=== PATIENT | male | born 1990 | race African-American/Black ===

== ENCOUNTER 2017-05-07 22:15 | Inpatient (IN) | payer SELFPAY ==
[~2017-05-07] VITALS: Ht 180.3 cm; Wt 70.9 kg
[2017-05-07 22:16] VITALS: BP 141/74; PULSE 145; RESP 22; TEMP 103.2; O2SAT 98
[2017-05-07] MEDS ORDERED: SODIUM CHLOR 0.9% 1000 ML INJ 1,000 ML IV ONE ×2 (22:36)
[2017-05-07] MEDS ORDERED: SODIUM CHLOR 0.9% 1000 ML INJ 400 ML IV ONE (22:36)
[2017-05-07] MEDS ORDERED: ACETAMINOPHEN 325 MG TAB PO ONE (22:45)
--- NOTE | 2017-05-07 22:48 | PD ---
HPI . Fever and chills Chief Complaint: Cold / Flu Symptoms Time Seen by Provider: 22:33 Travel History International Travel<30 days: No Contact w/Intl Traveler<30days: No Traveled to known affect area: No History of Present Illness HPI This patient presents with a 5 day history of fevers and chills. He also has myalgias. He states that he had a brief period of upper respiratory symptoms and a cough on the day that the symptoms started. The symptoms have all completely resolved. He denies any urinary tract symptoms such as dysuria, frequency or urgency. He has had just a couple of episodes of emesis and diarrhea during the last 5 days. Nothing significant. He denies abdominal pain. He reports that NyQuil and DayQuil do help some. He states that his symptoms are worse at night. He reports exposure to several people who are sick with similar illnesses. He rates his body aches at 7/10. [facility] Social History Alcohol Use: Yes Tobacco Use: Yes Allergies-Medications (Allergen,Severity, Reaction): Coded Allergies: No Known Allergies (Verified Allergy, Unknown, 05/07/17) Reported Meds & Prescriptions Reported Meds & Active Scripts Active No Active Prescriptions or Reported Medications Review of Systems Except as stated in HPI: all other systems reviewed are Neg General / Constitutional: Positive: Fever, Chills HENT: No: Headaches, Sore Throat, Rhinorrhea, Congestion Respiratory: No: Cough, Shortness of Breath Gastrointestinal: Positive: Nausea, Diarrhea (minimal emesis and diarrhea) Genitourinary: No: Urgency, Frequency, Dysuria, Decreased Urinary Output Musculoskeletal: Positive: Myalgias Physical Exam Narrative GENERAL: He is awake and alert and does not look like he is in distress. SKIN: warm/dry. Good color and turgor. HEAD: Normocephalic. EYES: Pupils equal and round. No scleral icterus. No injection or drainage. ENT: No nasal bleeding or discharge. Mucous membranes pink and moist. NECK: Trachea midline. Full range of motion without pain.. Supple. CARDIOVASCULAR: Tachycardic at about 140. RESPIRATORY: No accessory muscle use. Clear to auscultation. Breath sounds equal bilaterally. GASTROINTESTINAL: Abdomen soft. Nontender. Bowel sounds present. Nondistended. MUSCULOSKELETAL: No obvious deformities. NEUROLOGICAL: Awake and alert. No obvious cranial nerve deficits. Motor grossly within normal limits. Normal speech. PSYCHIATRIC: Appropriate mood and affect; insight and judgment normal. Data Data Last Documented VS Vital Signs Date Time Temp Pulse Resp B/P (MAP) Pulse Ox O2 Delivery O2 Flow Rate FiO2 05/07/17 23:38 101.2 99 20 112/51 (71) 100 Room Air Orders Orders Sepsis Workup Initiated (05/07/17 ) Complete Blood Count With Diff (05/07/17 22:36) Comprehensive Metabolic Panel (05/07/17 22:36) Lactic Acid Sepsis Protocol (05/07/17 22:36) Urinalysis - C+S If Indicated (05/07/17 22:36) Influenzae A/B Antigen (05/07/17 22:36) Blood Culture (05/07/17 22:36) Chest, Single Ap (05/07/17 22:36) Blood Glucose (05/07/17 22:36) Ecg Monitoring (05/07/17 22:36) Iv Access Insert/Monitor (05/07/17 22:36) Oximetry (05/07/17 22:36) Oxygen Administration (05/07/17 22:36) Acetaminophen (Tylenol) (05/07/17 22:45) Sodium Chlor 0.9% 1000 Ml Inj (Ns 1000 M (05/07/17 22:36) Sodium Chlor 0.9% 1000 Ml Inj (Ns 1000 M (05/07/17 22:36) Sodium Chlor 0.9% 1000 Ml Inj (Ns 1000 M (05/07/17 22:36) Ceftriaxone Inj (Rocephin Inj) (05/07/17 23:07) Azithromycin Inj (Zithromax Inj) (05/07/17 23:07) Urine Culture (05/07/17 23:10) Admit Order (Ed Use Only) (05/08/17 ) Labs Laboratory Tests Test 05/07/17 22:54 05/07/17 23:10 White Blood Count 11.6 TH/MM3 Red Blood Count 4.29 MIL/MM3 Hemoglobin 9.8 GM/DL Hematocrit 29.6 % Mean Corpuscular Volume 69.1 FL Mean Corpuscular Hemoglobin 22.9 PG Mean Corpuscular Hemoglobin Concent 33.1 % Red Cell Distribution Width 15.0 % Platelet Count 339 TH/MM3 Mean Platelet Volume 8.8 FL Neutrophils (%) (Auto) 65.9 % Lymphocytes (%) (Auto) 23.8 % Monocytes (%) (Auto) 9.9 % Eosinophils (%) (Auto) 0.2 % Basophils (%) (Auto) 0.2 % Neutrophils # (Auto) 7.6 TH/MM3 Lymphocytes # (Auto) 2.8 TH/MM3 Monocytes # (Auto) 1.1 TH/MM3 Eosinophils # (Auto) 0.0 TH/MM3 Basophils # (Auto) 0.0 TH/MM3 CBC Comment AUTO DIFF Differential Comment AUTO DIFF CONFIRMED Blood Urea Nitrogen 28 MG/DL Creatinine 1.40 MG/DL Random Glucose 99 MG/DL Total Protein 7.9 GM/DL Albumin 2.2 GM/DL Calcium Level 8.1 MG/DL Alkaline Phosphatase 302 U/L Aspartate Amino Transf (AST/SGOT) 89 U/L Alanine Aminotransferase (ALT/SGPT) 91 U/L Total Bilirubin 1.8 MG/DL Sodium Level 132 MEQ/L Potassium Level 4.2 MEQ/L Chloride Level 100 MEQ/L Carbon Dioxide Level 22.3 MEQ/L Anion Gap 10 MEQ/L Estimat Glomerular Filtration Rate 74 ML/MIN Lactic Acid Level 2.1 mmol/L Urine Color YELLOW Urine Turbidity HAZY Urine pH 5.5 Urine Specific [place] 1.011 Urine Protein 100 mg/dL Urine Glucose (UA) NEG mg/dL Urine Ketones NEG mg/dL Urine Occult Blood MOD Urine Nitrite NEG Urine Bilirubin NEG Urine Urobilinogen 4.0 MG/DL Urine Leukocyte Esterase TRACE Urine RBC 49 /hpf Urine WBC 18 /hpf Urine Squamous Epithelial Cells <1 /hpf Urine Bacteria RARE /hpf Urine Granular Casts 10 /lpf Urine Mucus FEW /lpf Urine Yeast (Budding) RARE Microscopic Urinalysis Comment CATH-CULTURE IND [facility] Medical Decision Making Medical Screen Exam Complete: Yes Emergency Medical Condition: Yes Differential Diagnosis Differential diagnosis of fever includes but is not limited to viral illness, strep throat, otitis media, pneumonia, sepsis, UTI Narrative Course This patient presents with a fever of 103+ as well as tachycardia. Septic workup has been initiated. He is young and healthy. I have ordered a 3 L fluid bolus which is 30 cc/kg. He will also be given Tylenol. Flu screen is negative. Last Impressions Chest X-Ray 05/07/17 7926 Signed Impressions: Service Date/Time: Sunday, May 07, 2017 22:54 - CONCLUSION: 1. Ill-defined opacity in the mid to lower lung zone concerning for developing airspace disease. Wander Browne MD Rocephin and Zithromax were subsequently ordered. UA>>trace LE, 49 RBCs, 18 WBCs, rare bact. He also has some yeast. CBC & BMP Diagram 05/07/17 22:54 Total Protein 7.9, Albumin 2.2 L, Calcium Level 8.1 L, Alkaline Phosphatase 302 H, Aspartate Amino Transf (AST/SGOT) 89 H, Alanine Aminotransferase (ALT/SGPT) 91 H, Total Bilirubin 1.8 H LA 2.1 HR is down to 95 following fever control and IVF. He is agreeable to admission at least overnight. Critical Care Narrative Aggregate critical care time was 30 minutes. Time to perform other separately billable procedures was not included in the critical care time. My time did not include minutes spent treating any other patients simultaneously or on activities that did not directly contribute to the patient's treatment. The services I provided to this patient were to treat and/or prevent clinically significant deterioration due to severe sepsis I provided critical care services requiring my management, as noted below: Chart data review, documentation time, medication orders and management, vital sign assessments/reviewing monitor data, ordering and reviewing lab tests, ordering and interpreting/reviewing x-rays and diagnostic studies, care of the patient and discussion of the patient with the admitting physicians Sepsis Criteria SIRS Criteria (2 or more): Temp > 100.9 or < 96.8, Heart rate over 90 Sepsis Criteria (SIRS+source): Infect source susp/known Severe Sepsis (+one): Lactate >2 Criteria Outcome: Meets SIRS criteria, Meets sepsis criteria Physician Communication Physician Communication Dr. Paredes Diagnosis Primary Impression: Severe sepsis Additional Impressions: Pneumonia Qualified Codes: J18.1 - Lobar pneumonia, unspecified organism Urinary tract infection Qualified Codes: N39.0 - Urinary tract infection, site not specified Admitting Information Admitting Physician Requests: Observation Scripts No Active Prescriptions or Reported Meds Condition: Stable Tere Rajan MD May 07, 2017 22:48
--- NOTE | 2017-05-07 23:03 | RADRPT ---
EXAM DATE/TIME: 05/07/2017 22:54 [place] COMPARISON: No previous studies available for comparison. INDICATIONS : Fever for 1 week. MEDICAL HISTORY : None. SURGICAL HISTORY : None. ENCOUNTER: Initial ACUITY: 1 week PAIN SCORE: 0/10 LOCATION: Bilateral chest FINDINGS: Ill-defined opacity in the left mid to lower lung zone. Cardiome subchondrally within normal limits. Bony thorax is intact. CONCLUSION: 1. Ill-defined opacity in the mid to lower lung zone concerning for developing airspace disease. Wander Browne MD on May 07, 2017 at 22:58 Board Certified Radiologist. This report was verified electronically.
[2017-05-07] MEDS ORDERED: AZITHROMYCIN INJ 500 MG in SODIUM CHLOR 0.9% 250 ML INJ 250 ML IV STA (23:07)
[2017-05-07] MEDS ORDERED: cefTRIAXone INJ 2,000 MG in SODIUM CHLORIDE 0.9% INJ 100 ML IV STA (23:07)
[2017-05-07 23:22] LABS: AUTOMATED NEUTROPHIL # 7.6 TH/MM3 (1.8-7.7); BASOPHIL % 0.2 % (0.0-2.0); EOSINOPHIL % 0.2 % (0.0-4.0); HEMATOCRIT 29.6 % (39.0-51.0); HEMOGLOBIN 9.8 GM/DL (13.0-17.0); LYMPH % 23.8 % (9.0-44.0); LYMPHOCYTE # 2.8 TH/MM3 (1.0-4.8); MEAN CELL VOLUME 69.1 FL (80.0-100.0); MEAN CORPUSCULAR HEMOGLOBIN 22.9 PG (27.0-34.0); MEAN CORPUSCULAR HGB CONC 33.1 % (32.0-36.0); MEAN PLATELET VOLUME 8.8 FL (7.0-11.0); MONO % 9.9 % (0.0-8.0); MONOCYTE # 1.1 TH/MM3 (0-0.9); NEUT % 65.9 % (16.0-70.0); PLATELET COUNT 339 TH/MM3 (150-450); RED BLOOD COUNT 4.29 MIL/MM3 (4.50-5.90); WHITE BLOOD COUNT 11.6 TH/MM3 (4.0-11.0)
[2017-05-07 23:29] LABS: BACTERIA, URINE RARE /hpf; BILIRUBIN, URINE NEG (NEG); BLOOD, URINE MOD (NEG); GLUCOSE,URINE NEG (NEG); KETONE, URINE NEG (NEG); MUCUS URINE FEW /lpf (OCC); NITRITE,URINE NEG (NEG); PH, URINE 5.5 (5.0-8.5); SQUAMOUS EPITHELIAL CELL URINE <1 /hpf (0-5); URINE COLOR YELLOW (YELLW/STRAW); URINE LEUKOCYTE ESTERASE TRACE (NEG)
[2017-05-07 23:38] VITALS: BP 112/51; PULSE 99; RESP 20; TEMP 101.2; O2SAT 100
[2017-05-07 23:41] LABS: ALBUMIN 2.2 GM/DL (3.4-5.0); ALT (GPT) 91 U/L (12-78); AST (GOT) 89 U/L (15-37); BICARBONATE 22.3 MEQ/L (21.0-32.0); BLOOD UREA NITROGEN 28 MG/DL (7-18); CALCIUM 8.1 MG/DL (8.5-10.1); CHLORIDE 100 MEQ/L (98-107); GLOMERULAR FILTRATION RATE 74 ML/MIN (>89); GLUCOSE,RANDOM 99 MG/DL (74-106); SODIUM (NA) 132 MEQ/L (136-145)
[2017-05-07 23:43] LABS: ALKALINE PHOSPHATASE 302 U/L (45-117); TOTAL BILIRUBIN ADULT 1.8 MG/DL (0.2-1.0); TOTAL PROTEIN 7.9 GM/DL (6.4-8.2)
[2017-05-07 23:44] LABS: LACTIC ACID SEPSIS PROTOCOL 2.1 mmol/L (0.4-2.0)
[2017-05-08] VITALS: BP 113/64; PULSE 78; RESP 18; TEMP 98.7; O2SAT 98
[2017-05-08] MEDS ORDERED: ONDANSETRON HCL 4 MG/2 ML VIAL IV PUSH PRN (00:30)
[2017-05-08] MEDS ORDERED: ACETAMINOPHEN 325 MG TAB PO PRN (00:30)
[2017-05-08] MEDS ORDERED: RESP: ALBUTEROL 2.5 MG/IPRATROPIUM 0.5 MG NEB (PRN) INH (00:30)
[2017-05-08] MEDS ORDERED: SODIUM CHLORIDE 0.9% FLUSH 10 ML FLUSH IV FLUSH PRN (00:30)
[2017-05-08 01:03] VITALS: BP 113/56; PULSE 92; RESP 20; TEMP 99.8; O2SAT 99
--- NOTE | 2017-05-08 01:29 | HHI.HP ---
[facility] [place] [facility] Primary Care Physician No Primary Care Physician Admission Diagnosis sepsis, pneumonia, UTI Diagnoses: Travel History International Travel<30 Days: No Contact w/Intl Traveler <30 Da: No Traveled to Known Affected Are: No History of Present Illness 26-year-old male with no significant past medical history presents to the emergency department for evaluation of flulike symptoms. The patient reports subjective fever with shivers and a cough productive of green sputum for the past 6-7 days. He denies any shortness of breath or chest pain. He was febrile on arrival to the emergency department if one of 3.2. Tachycardic to 145. Respiratory rate 22. BP 141/74. Oxygen saturation 98% on room air. He has a mild leukocytosis of 11.6. Chest x-ray concerning for developing pneumonia. UA consistent with urinary tract infection. Review of Systems Positive fever/chills Denies blurry vision, otorrhea, rhinorrhea Denies sore throat, positive cough No chest pain, palpitations, shortness of breath No abdominal pain Denies constipation/diarrhea/nausea/vomiting Denies muscle pain/weakness No rashes Past Family Social History Past Medical History None Past Surgical History None Reported Medications None Allergies: Coded Allergies: No Known Allergies (Verified Allergy, Unknown, 05/07/17) Family History Mother with hypertension Social History Smokes approximately 1 pack every 1-1/2 days. Occasional alcohol. Daily marijuana use. Denies other illicit drugs. Physical Exam Vital Signs Vital Signs Date Time Temp Pulse Resp B/P (MAP) Pulse Ox O2 Delivery O2 Flow Rate FiO2 05/08/17 01:03 99.8 92 20 113/56 (75) 99 Room Air 05/08/17 00:38 98 Room Air 05/07/17 23:38 101.2 99 20 112/51 (71) 100 Room Air 05/07/17 23:04 100 Room Air 05/07/17 23:01 148 100 Room Air 05/07/17 22:16 103.2 145 22 141/74 (96) 98 Room Air Physical Exam GENERAL: male lying in bed SKIN: No rashes, ecchymoses or lesions. Cool and dry. HEAD: Atraumatic. Normocephalic. No temporal or scalp tenderness. EYES: Pupils equal round and reactive. Extraocular motions intact. No scleral icterus. No injection or drainage. ENT: Nose without bleeding, purulent drainage or septal hematoma. Throat without erythema, tonsillar hypertrophy or exudate. Uvula midline. Airway patent. NECK: Trachea midline. No JVD or lymphadenopathy. Supple, nontender, no meningeal signs. CARDIOVASCULAR: Regular rate and rhythm without murmurs, gallops, or rubs. RESPIRATORY: Clear to auscultation. Breath sounds equal bilaterally. No wheezes , rales, or rhonchi. GASTROINTESTINAL: Abdomen soft, non-tender, nondistended. No hepato-splenomegaly , or palpable masses. No guarding. MUSCULOSKELETAL: Extremities without clubbing, cyanosis, or edema. No joint tenderness, effusion, or edema noted. No calf tenderness. NEUROLOGICAL: Awake and alert. Cranial nerves II through XII intact. Motor and sensory grossly within normal limits. Normal speech. Laboratory Laboratory Tests Test 05/07/17 22:54 05/07/17 23:10 05/08/17 00:49 White Blood Count 11.6 Red Blood Count 4.29 Hemoglobin 9.8 Hematocrit 29.6 Mean Corpuscular Volume 69.1 Mean Corpuscular Hemoglobin 22.9 Mean Corpuscular Hemoglobin Concent 33.1 Red Cell Distribution Width 15.0 Platelet Count 339 Mean Platelet Volume 8.8 Neutrophils (%) (Auto) 65.9 Lymphocytes (%) (Auto) 23.8 Monocytes (%) (Auto) 9.9 Eosinophils (%) (Auto) 0.2 Basophils (%) (Auto) 0.2 Neutrophils # (Auto) 7.6 Lymphocytes # (Auto) 2.8 Monocytes # (Auto) 1.1 Eosinophils # (Auto) 0.0 Basophils # (Auto) 0.0 CBC Comment AUTO DIFF Differential Comment AUTO DIFF CONFIRMED Blood Urea Nitrogen 28 Creatinine 1.40 Random Glucose 99 Total Protein 7.9 Albumin 2.2 Calcium Level 8.1 Alkaline Phosphatase 302 Aspartate Amino Transf (AST/SGOT) 89 Alanine Aminotransferase (ALT/SGPT) 91 Total Bilirubin 1.8 Sodium Level 132 Potassium Level 4.2 Chloride Level 100 Carbon Dioxide Level 22.3 Anion Gap 10 Estimat Glomerular Filtration Rate 74 Lactic Acid Level 2.1 Urine Color YELLOW Urine Turbidity HAZY Urine pH 5.5 Urine Specific [place] 1.011 Urine Protein 100 Urine Glucose (UA) NEG Urine Ketones NEG Urine Occult Blood MOD Urine Nitrite NEG Urine Bilirubin NEG Urine Urobilinogen 4.0 Urine Leukocyte Esterase TRACE Urine RBC 49 Urine WBC 18 Urine Squamous Epithelial Cells <1 Urine Bacteria RARE Urine Granular Casts 10 Urine Mucus FEW Urine Yeast (Budding) RARE Microscopic Urinalysis Comment CATH-CULTURE IND Date/Time Source Procedure Growth Status 05/07/17 22:55 Blood Peripheral Aerobic Blood Culture Pending Received 05/07/17 22:55 Blood Peripheral Anaerobic Blood Culture Pending Received 05/07/17 22:54 Nasal Washing Influenza Types A,B Antigen (DARCI) - Final NEGATIVE FOR FLU A AND B ANTIGEN.... Complete 05/07/17 23:10 Urine Catheterized Urine Urine Culture Pending Received Result Diagram: 05/07/17 2254 05/07/17 2254 Caprini VTE Risk Assessment Caprini VTE Risk Assessment: No/Low Risk (score <= 1) Caprini Risk Assessment Model Point Value = 1 Point Value = 2 Point Value = 3 Point Value = 5 Age 41-60 Minor surgery BMI > 25 kg/m2 Swollen legs Varicose veins or History of unexplained or recurrent spontaneous Oral contraceptives or hormone replacement Sepsis (< 1 month) Serious lung disease, including pneumonia (< 1 month) Abnormal pulmonary function Acute myocardial infarction Congestive heart failure (< 1 month) History of inflammatory bowel disease Medical patient at bed rest Age 61-74 Arthroscopic surgery Major open surgery (> 45 min) Laparoscopic surgery (> 45 min) Malignancy Confined to bed (> 72 hours) Immobilizing plaster cast Central venous access Age >= 75 History of VTE Family history of VTE Factor V Leiden Prothrombin [id number] Lupus anticoagulant Anticardiolipin antibodies Elevated serum homocysteine Heparin-induced thrombocytopenia Other congenital or acquired thrombophilia Stroke (< 1 month) Elective arthroplasty Hip, pelvis, or leg fracture Acute spinal cord injury (< 1 month) Prophylaxis Regimen Total Risk Factor Score Risk Level Prophylaxis Regimen 0-1 Low Early ambulation 2 Moderate Order ONE of the following: *Sequential Compression Device (SCD) *Heparin 5000 units SQ BID 3-4 Higher Order ONE of the following medications: *Heparin 5000 units SQ TID *Enoxaparin/Lovenox 40 mg SQ daily (WT < 150 kg, CrCl > 30 mL/min) *Enoxaparin/Lovenox 30 mg SQ daily (WT < 150 kg, CrCl > 10-29 mL/min) *Enoxaparin/Lovenox 30 mg SQ BID (WT < 150 kg, CrCl > 30 mL/min) AND/OR *Sequential Compression Device (SCD) 5 or more Highest Order ONE of the following medications: *Heparin 5000 units SQ TID (Preferred with Epidurals) *Enoxaparin/Lovenox 40 mg SQ daily (WT < 150 kg, CrCl > 30 mL/min) *Enoxaparin/Lovenox 30 mg SQ daily (WT < 150 kg, CrCl > 10-29 mL/min) *Enoxaparin/Lovenox 30 mg SQ BID (WT < 150 kg, CrCl > 30 mL/min) AND *Sequential Compression Device (SCD) Assessment and Plan Assessment and Plan Assessment/plan: 1. Community acquired pneumonia/sepsis Chest x-ray concerning for early pneumonia, images reviewed by me Somers/[place] Patient febrile, with leukocytosis, tachycardia and lactic acid of 2.1 Monitor for signs of sepsis Blood cultures pending 2. Urinary tract infection UA with rare yeast, rare bacteria, trace leukocyte esterase, moderate blood Antibiotics as above Add Diflucan 3. ASIA Cr 1.40, no baseline for comparison IVF hydration Monitor renal function FEN Regular diet NS at 125 cc/hr Physician Certification 2 Midnight Certification Type: Admission for Inpatient Services Order for Inpatient Services The services are ordered in accordance with Medicare regulations or non- Medicare payer requirements, as applicable. In the case of services not specified as inpatient-only, they are appropriately provided as inpatient services in accordance with the 2-midnight benchmark. Estimated LOS (days): 2 2 days is the estimated time the patient will need to remain in the hospital, assuming treatment plan goals are met and no additional complications. Post-Hospital Plan: Home Jodie Paredes MD May 08, 2017 01:29
[2017-05-08] MEDS: RESP: ALBUTEROL 2.5 MG/IPRATROPIUM 0.5 MG NEB (SCH) INH ×2 (02:51→07:43)
[2017-05-08 04:00] VITALS: BP 108/58; PULSE 77; RESP 18; TEMP 98.7; O2SAT 97
[2017-05-08] MEDS: SODIUM CHLOR 0.9% 1000 ML INJ 1,000 ML IV SCH ×2 (04:39→09:11)
[2017-05-08 07:31] VITALS: BP 107/55; PULSE 61; RESP 20; TEMP 97.9; O2SAT 100
[2017-05-08] MEDS ORDERED: FLUCONAZOLE 200 MG TAB PO SCH (09:00)
[2017-05-08] MEDS ORDERED: SODIUM CHLORIDE 0.9% FLUSH 10 ML FLUSH IV FLUSH SCH (09:00)
[2017-05-08 10:58] LABS: HEMATOCRIT 31.6 % (39.0-51.0); HEMOGLOBIN 10.3 GM/DL (13.0-17.0); MEAN CELL VOLUME 69.6 FL (80.0-100.0); MEAN CORPUSCULAR HEMOGLOBIN 22.8 PG (27.0-34.0); MEAN CORPUSCULAR HGB CONC 32.8 % (32.0-36.0); MEAN PLATELET VOLUME 8.6 FL (7.0-11.0); PLATELET COUNT 369 TH/MM3 (150-450); RED BLOOD COUNT 4.54 MIL/MM3 (4.50-5.90); RED CELL DISTRIBUTION WIDTH 15.5 % (11.6-17.2); WHITE BLOOD COUNT 17.4 TH/MM3 (4.0-11.0)
[2017-05-08 11:18] LABS: ALBUMIN 1.8 GM/DL (3.4-5.0); ALT (GPT) 81 U/L (12-78); AST (GOT) 85 U/L (15-37); BICARBONATE 23.9 MEQ/L (21.0-32.0); BLOOD UREA NITROGEN 20 MG/DL (7-18); CALCIUM 7.9 MG/DL (8.5-10.1); CHLORIDE 108 MEQ/L (98-107); CREATININE 1.01 MG/DL (0.60-1.30); GLOMERULAR FILTRATION RATE 108 ML/MIN (>89); GLUCOSE,RANDOM 119 MG/DL (74-106); SODIUM (NA) 142 MEQ/L (136-145)
[2017-05-08 11:22] LABS: ALKALINE PHOSPHATASE 263 U/L (45-117); TOTAL BILIRUBIN ADULT 1.6 MG/DL (0.2-1.0); TOTAL PROTEIN 7.2 GM/DL (6.4-8.2)
[2017-05-08 11:41] VITALS: BP 134/81; PULSE 79; RESP 18; TEMP 99.3; O2SAT 100
[2017-05-08] MEDS ORDERED: LEVA750T9 PO ×2 (12:52→12:57)
--- NOTE | 2017-05-08 12:56 | HHI.DCPOC ---
Discharge Care Plan Diagnosis: (1) Dehydration (2) Elevated liver enzymes (3) Pneumonia Additional Problems You will need to see your primary care provider in 3-5 days in regards to this admission and in regards to your mild elevated liver enzymes. It may be due to a virus but you will need to have this recheck to make sure this resolved or if further work up is needed. Goals to Promote Your Health * To prevent worsening of your condition and complications * To maintain your health at the optimal level Directions to Meet Your Goals Take your medications as prescribed Follow your dietary instruction Follow activity as directed Keep your appointments as scheduled Take your immunizations and boosters as scheduled If your symptoms worsen call your PCP, if no PCP go to Urgent Care Center or Emergency Room Smoking is Dangerous to Your Health. Avoid second hand smoke Call the 24-hour hour crisis hotline for domestic abuse at Saranya Canela MD May 08, 2017 12:56
--- NOTE | 2017-05-08 14:54 | HHI.DS ---
Discharge Summary Admission Date May 08, 2017 at 01:11 Discharge Date: May 08, 2017 Admitting Diagnosis Viral syndrome Elevated liver enzymes Renal insufficiency/dehydration (1) Elevated liver enzymes ICD Code: R74.8 - Abnormal levels of other serum enzymes Diagnosis: Principal (2) Dehydration ICD Code: E86.0 - Dehydration Diagnosis: Principal (3) Renal insufficiency ICD Code: N28.9 - Disorder of kidney and ureter, unspecified Diagnosis: Principal (4) Pneumonia ICD Code: J18.9 - Pneumonia, unspecified organism Diagnosis: Principal Status: Acute Procedures See hospital course. Brief History - From Admission 26-year-old male with no significant past medical history presents to the emergency department for evaluation of flulike symptoms. The patient reports subjective fever with shivers and a cough productive of green sputum for the past 6-7 days. He denies any shortness of breath or chest pain. He was febrile on arrival to the emergency department if one of 3.2. Tachycardic to 145. Respiratory rate 22. BP 141/74. Oxygen saturation 98% on room air. He has a mild leukocytosis of 11.6. Chest x-ray concerning for developing pneumonia. UA consistent with urinary tract infection. CBC/BMP: 05/08/17 1039 05/08/17 1039 Significant Findings Laboratory Tests Test 05/07/17 22:54 05/07/17 23:10 05/08/17 00:49 05/08/17 10:39 White Blood Count 11.6 TH/MM3 (4.0-11.0) 17.4 TH/MM3 (4.0-11.0) Red Blood Count 4.29 MIL/MM3 (4.50-5.90) Hemoglobin 9.8 GM/DL (13.0-17.0) 10.3 GM/DL (13.0-17.0) Hematocrit 29.6 % (39.0-51.0) 31.6 % (39.0-51.0) Mean Corpuscular Volume 69.1 FL (80.0-100.0) 69.6 FL (80.0-100.0) Mean Corpuscular Hemoglobin 22.9 PG (27.0-34.0) 22.8 PG (27.0-34.0) Monocytes (%) (Auto) 9.9 % (0.0-8.0) Monocytes # (Auto) 1.1 TH/MM3 (0-0.9) Blood Urea Nitrogen 28 MG/DL (7-18) 20 MG/DL (7-18) Creatinine 1.40 MG/DL (0.60-1.30) Albumin 2.2 GM/DL (3.4-5.0) 1.8 GM/DL (3.4-5.0) Calcium Level 8.1 MG/DL (8.5-10.1) 7.9 MG/DL (8.5-10.1) Alkaline Phosphatase 302 U/L (45-117) 263 U/L (45-117) Aspartate Amino Transf (AST/SGOT) 89 U/L (15-37) 85 U/L (15-37) Alanine Aminotransferase (ALT/SGPT) 91 U/L (12-78) 81 U/L (12-78) Total Bilirubin 1.8 MG/DL (0.2-1.0) 1.6 MG/DL (0.2-1.0) Sodium Level 132 MEQ/L (136-145) Estimat Glomerular Filtration Rate 74 ML/MIN (>89) Lactic Acid Level 2.1 mmol/L (0.4-2.0) Urine Turbidity HAZY (CLEAR) Urine Protein 100 mg/dL (NEG-TRACE) Urine Occult Blood MOD (NEG) Urine Urobilinogen 4.0 MG/DL (LESS THAN Urine Leukocyte Esterase TRACE (NEG) Urine RBC 49 /hpf (0-3) Urine WBC 18 /hpf (0-5) Urine Bacteria RARE /hpf (NONE) Urine Mucus FEW /lpf (OCC) Urine Yeast (Budding) RARE (NONE) Random Glucose 119 MG/DL (74-106) Chloride Level 108 MEQ/L (98-107) Imaging Last Impressions Chest X-Ray 05/07/172235 Signed Impressions: Service Date/Time: Sunday, May 07, 2017 22:54 - CONCLUSION: 1. Ill-defined opacity in the mid to lower lung zone concerning for developing airspace disease. Wander Browne MD PE at Discharge GENERAL: in NAD SKIN: Warm and dry. HEAD: Normocephalic. EYES: No scleral icterus. No injection or drainage. NECK: Supple, trachea midline. No JVD or lymphadenopathy. CARDIOVASCULAR: Regular rate and rhythm without murmurs, gallops, or rubs. RESPIRATORY: Breath sounds equal bilaterally. No accessory muscle use. GASTROINTESTINAL: Abdomen soft, non-tender, nondistended. MUSCULOSKELETAL: No cyanosis, or edema. BACK: Nontender without obvious deformity. No CVA tenderness. Pt update on day of discharge Follow-up for fever, cough Patient stated he feels a lot better. He has no complaint. Denies any shortness of breathing. He does not like water usually doesn't drink a lot of water. Fevers resolved. Denies any nausea or vomiting. Deny any dominant pain. Denies any urinary symptoms. Patient seen walking down the hallway in no distress and very comfortable. He denies any alcohol use or IV drug use. Hospital Course Patient was admitted due to possible early formation pneumonia found on chest x- ray. On the day of his presentation he had cough and fevers. Mild leukocytosis of 11,000. 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 He was found to be dehydrated with some mild renal sufficiency. Symptoms improved quickly with IV fluids. Flu was done which was negative. Symptoms seem to be more due to a viral syndrome but he was treated empirically for pneumonia. He did not have any shortness of breathing and was not hypoxic. Kidney function resolved on the day of discharge. On his labs he also had mild elevated liver enzymes was also fits the picture of viral syndrome. Since patient had a drastic improvement quickly he was discharged home in stable condition. As for his urine he gave a dirty sample and he was asymptomatic. Very unlikely this is UTI but despite this he was given Levaquin empirically for possible pneumonia which will cover for his UTI if he did have one. Patient told to follow-up with his primary care provider in 3-5 days. He will also need a repeat in his LFTs to make sure his liver enzymes go back to normal before to determine if further workup is needed. Patient stated that he understood. Patient was encouraged to increase his fluid intake. Pt Condition on Discharge: Good Discharge Disposition: Discharge Home Discharge Time: > 30 minutes Discharge Instructions DIET: Follow Instructions for: As Tolerated, No Restrictions Activities you can perform: Regular-No Restrictions Follow up Referrals: PCP Follow-up - 1 Week New Medications: Levofloxacin (Levaquin) 750 Mg Tablet 750 MG PO DAILY for Infection, #6 TAB 0 Refills Saranya Canela MD May 08, 2017 14:54
[2017-05-09] MEDS ORDERED: cefTRIAXone INJ 1,000 MG in SODIUM CHLORIDE 0.9% INJ 100 ML IV SCH ×2
[2017-05-09] MEDS ORDERED: AZITHROMYCIN INJ 500 MG in SODIUM CHLOR 0.9% 250 ML INJ 250 ML IV SCH ×2
[2017-05-09] MEDS ORDERED: INFLUENZA VIRUS VACCINE (QUADRIVALENT) 0.5 ML SYR IM ONE (10:00)
[2017-05-09] MEDS ORDERED: PNEUMOCOCCAL POLYVALENT INJ 25 MCG/0.5 ML SYR IM ONE (10:00)
--- NOTE | 2017-05-10 14:53 | HHI.PR ---
Subjective Remarks spoke to patient over the phone on 05/10/2017 at 2:25 PM in regards to +1/4 positive blood cultures. Patient stated he feels good and he has no complaints. he stated he is back to his normal self and he will be moving soon. Patient then asked me if he should go to health department. I stated to patient as recommended on his hospitalization he should see a PCP for follow up for his hospitalization. I also asked patient if he has anal sex because hes cxr was not impressive and urine cultures is negatives so there is no other source for a positive blood cultures in a young person who has no hx of IVDU. Patient admits to having anal sex. I recommend to go to health department to get STD testing since he is high risk of having an STD with his hx of of anal sex. Patient stated he will definitely do that. I also told patient I will call him when the final cultures return but if he does not hear from me or my office to call us back. I let him know I will be back in 4 days. I also told patient any concerns or if does not feel well return to emergency department. patient stated he understood. Objective Result Diagram: 05/08/17 1039 05/08/17 1039 Saranya Canela MD May 10, 2017 14:53
== END 2017-05-08 15:22 | disposition home or self-care (01) | DRG 871 ==
LOC: NEPD 22:15 → NEDA 05-08 00:18 → OBSVTOIN 05-08 01:11 → NEPHCDU 05-08 01:44
PROVIDERS: ADMIT Family Medicine; ATTEND Family Medicine
DX: A41.9 Sepsis, unspecified organism (principal); J18.1 Lobar pneumonia, unspecified organism; B34.9 Viral infection, unspecified; R74.8 Abnormal levels of other serum enzymes; E86.0 Dehydration; N28.9 Disorder of kidney and ureter, unspecified; F12.90 Cannabis use, unspecified, uncomplicated; F17.210 Nicotine dependence, cigarettes, uncomplicated
CPT/HCPCS: 71010; 80053; 81001; 83605; 85025; 85027; 87040; 87086; 87185; 87205; 87804; 94640; 94664; 96360; J0456; J0696; J7030; J7050

== ENCOUNTER 2017-05-13 18:51 | Emergency (ER) | payer SELFPAY ==
[~2017-05-13] VITALS: Ht 180.3 cm; Wt 63.6 kg
[~2017-05-13 18:51] MED LIST: LEVA750T9 PO
[2017-05-13 19:00] VITALS: BP 121/63; PULSE 102; RESP 16; TEMP 99.7; O2SAT 98
[2017-05-13] MEDS ORDERED: SODIUM CHLORIDE 0.9% FLUSH 10 ML FLUSH IV FLUSH PRN (19:45)
--- NOTE | 2017-05-13 20:39 | RADRPT ---
EXAM DATE/TIME: 05/13/2017 20:04 [facility] COMPARISON: CHEST SINGLE AP, May 07, 2017, 22:54. INDICATIONS : Cough. Congestion. MEDICAL HISTORY : None. SURGICAL HISTORY : None. ENCOUNTER: Initial ACUITY: 4 - 6 days PAIN SCORE: 6/10 LOCATION: Bilateral chest FINDINGS: A single view of the chest demonstrates right basilar density. Left lung clear. Heart normal in size. The cardiomediastinal contours are unremarkable. Osseous structures are intact. CONCLUSION: Minimal density right lower lobe could be atelectasis or infiltrate. Jesus Salmeron MD on May 13, 2017 at 20:37 Board Certified Radiologist. This report was verified electronically.
[2017-05-13 20:43] LABS: AUTOMATED NEUTROPHIL # 8.1 TH/MM3 (1.8-7.7); BASOPHIL # 0.1 TH/MM3 (0-0.2); BASOPHIL % 0.6 % (0.0-2.0); EOSINOPHIL % 0.1 % (0.0-4.0); HEMATOCRIT 27.1 % (39.0-51.0); LYMPH % 19.6 % (9.0-44.0); LYMPHOCYTE # 2.3 TH/MM3 (1.0-4.8); MEAN CELL VOLUME 69.3 FL (80.0-100.0); MEAN CORPUSCULAR HGB CONC 33.1 % (32.0-36.0); MEAN PLATELET VOLUME 8.7 FL (7.0-11.0); MONO % 9.4 % (0.0-8.0); MONOCYTE # 1.1 TH/MM3 (0-0.9); NEUT % 70.3 % (16.0-70.0); PLATELET COUNT 499 TH/MM3 (150-450); RED BLOOD COUNT 3.91 MIL/MM3 (4.50-5.90); RED CELL DISTRIBUTION WIDTH 14.7 % (11.6-17.2); WHITE BLOOD COUNT 11.5 TH/MM3 (4.0-11.0)
[2017-05-13 20:50] LABS: AMORPHOUS SEDIMENT, URINE RARE; BACTERIA, URINE OCC /hpf; BILIRUBIN, URINE SMALL (NEG); BLOOD, URINE LARGE (NEG); GLUCOSE,URINE NEG (NEG); KETONE, URINE NEG (NEG); MUCUS URINE FEW /lpf (OCC); NITRITE,URINE NEG (NEG); PH, URINE 5.5 (5.0-8.5); URINE COLOR YELLOW (YELLW/STRAW); URINE LEUKOCYTE ESTERASE TRACE (NEG)
[2017-05-13 20:55] LABS: AST (GOT) 80 U/L (15-37); BICARBONATE 23.7 MEQ/L (21.0-32.0); BLOOD UREA NITROGEN 12 MG/DL (7-18); CHLORIDE 99 MEQ/L (98-107); CREATININE 0.92 MG/DL (0.60-1.30); GLOMERULAR FILTRATION RATE 121 ML/MIN (>89); GLUCOSE,RANDOM 87 MG/DL (74-106); SODIUM (NA) 132 MEQ/L (136-145)
[2017-05-13 20:59] LABS: ALKALINE PHOSPHATASE 348 U/L (45-117); ALT (GPT) 70 U/L (12-78); TOTAL BILIRUBIN ADULT 2.6 MG/DL (0.2-1.0); TOTAL PROTEIN 8.9 GM/DL (6.4-8.2)
[2017-05-13] MEDS ORDERED: cefTRIAXone INJ 1,000 MG in SODIUM CHLORIDE 0.9% INJ 100 ML IV ONE (21:00)
[2017-05-13] MEDS ORDERED: AUGM875T3 PO (21:36)
--- NOTE | 2017-05-13 21:37 | PD ---
HPI . Medical clearance Chief Complaint: Medical Clearance Time Seen by Provider: 19:30 Travel History International Travel<30 days: No Contact w/Intl Traveler<30days: No Traveled to known affect area: No History of Present Illness HPI 26-year-old male who recently was being treated with Levaquin now day 9 out of 10 for having right lower lobe pneumonia, complains of right flank pain and some mild dysuria. Patient also states that he feels tired. Patient has no complaints of fever and has no quantified fever. Patient was sent in for evaluation by his private medical physician secondary to positive blood culture growth result. Patient's PMD is going on vacation and wants to make sure the patient has adequate evaluation and follow-up. Patient otherwise has no headache no stiff neck no chest pain or shortness of breath, cough has abated, denies nausea vomiting diarrhea or, and denies hematuria. Patient has no rashes and no peripheral edema. PFSH Past Medical History Narrative Medical Past medical history reviewed Arthritis: No Asthma: No Autoimmune Disease: No Anxiety: No Depression: No Heart Rhythm Problems: No Cancer: No Cardiovascular Problems: No High Cholesterol: No Chemotherapy: No Chest Pain: No Congestive Heart Failure: No COPD: No Cerebrovascular Accident: No Diminished Hearing: No Endocrine: No Gastrointestinal Disorders: Yes (hemmoiroid) GERD: No Genitourinary: Yes (blood in urine tiny bit) Hiatal Hernia: No Immune Disorder: No Kidney Stones: No Musculoskeletal: No Neurologic: No Psychiatric: No Reproductive: No Respiratory: No Migraines: No Radiation Therapy: No Renal Failure: No Seizures: No Sickle Cell Disease: No Sleep Apnea: No Thyroid Disease: No Ulcer: No Tetanus Vaccination: Unknown Influenza Vaccination: No Past Surgical History AICD: No Arteriovenous Shunt: No Cardiac Surgery: No Ear Surgery: No Endocrine Surgery: No Eye Surgery: No Gynecologic Surgery: No Insulin Pump: No Joint Replacement: No Oral Surgery: No Pacemaker: No Thoracic Surgery: No Social History Alcohol Use: Yes (OCCASIONALY) Tobacco Use: Yes (HASN'T SMOKED IN 6 DAYS) Substance Use: No Allergies-Medications (Allergen,Severity, Reaction): Coded Allergies: No Known Allergies (Verified Allergy, Unknown, 05/07/17) Reported Meds & Prescriptions Reported Meds & Active Scripts Active Levaquin (Levofloxacin) 750 Mg Tablet 750 Mg PO DAILY Narrative Medication Allergies and medications reviewed Review of Systems Except as stated in HPI: all other systems reviewed are Neg General / Constitutional: No: Fever Eyes: No: Visual changes HENT: No: Headaches Cardiovascular: No: Chest Pain or Discomfort Respiratory: No: Cough, Shortness of Breath, Orthopnea, Hemoptysis, Night Sweats, Pleuritic Pain Gastrointestinal: No: Nausea, Vomiting, Abdominal Pain Genitourinary: Positive: Dysuria, No: Urgency, Frequency, Hematuria Musculoskeletal: No: Pain Skin: No Rash Neurologic: No: Weakness Psychiatric: No: Depression Endocrine: No: Polydipsia Hematologic/Lymphatic: No: Easy Bruising Physical Exam Narrative GENERAL: Awake alert oriented 3 no acute distress SKIN: Warm and dry. Color is normal no diaphoresis cyanosis or pallor HEAD: Atraumatic. Normocephalic. EYES: Pupils equal and round. No scleral icterus. No injection or drainage. ENT: No nasal bleeding or discharge. Mucous membranes pink and moist. NECK: Trachea midline. No JVD. Supple full range of motion CARDIOVASCULAR: Regular rate and rhythm. S1-S2 no murmurs or gallops RESPIRATORY: No accessory muscle use. Clear to auscultation. Breath sounds equal bilaterally. GASTROINTESTINAL: Abdomen soft, non-tender, nondistended. Hepatic and splenic margins not palpable. No CVA tenderness MUSCULOSKELETAL: Extremities without clubbing, cyanosis, or edema. No obvious deformities. NEUROLOGICAL: Awake and alert. No obvious cranial nerve deficits. Motor grossly within normal limits. Five out of 5 muscle strength in the arms and legs. Normal speech. PSYCHIATRIC: Appropriate mood and affect; insight and judgment normal. Data Data Last Documented VS Vital Signs Date Time Temp Pulse Resp B/P (MAP) Pulse Ox O2 Delivery O2 Flow Rate FiO2 05/13/17 19:00 99.7 102 16 121/63 (82) 98 Orders Orders Complete Blood Count With Diff (05/13/17 19:42) Comprehensive Metabolic Panel (05/13/17 19:42) Urinalysis - C+S If Indicated (05/13/17 19:42) Sodium Chloride 0.9% Flush (Ns Flush) (05/13/17 19:45) Chest, Single Ap (05/13/17 19:42) Blood Culture (05/13/17 19:42) Ceftriaxone Inj (Rocephin Inj) (05/13/17 21:00) Labs Laboratory Tests Test 05/13/17 20:00 05/13/17 20:15 Urine Color YELLOW Urine Turbidity HAZY Urine pH 5.5 Urine Specific [place] 1.017 Urine Protein 30 mg/dL Urine Glucose (UA) NEG mg/dL Urine Ketones NEG mg/dL Urine Occult Blood LARGE Urine Nitrite NEG Urine Bilirubin SMALL Urine Urobilinogen 4.0 MG/DL Urine Leukocyte Esterase TRACE Urine RBC 12 /hpf Urine WBC 6 /hpf Urine Amorphous Sediment RARE Urine Bacteria OCC /hpf Urine Mucus FEW /lpf Microscopic Urinalysis Comment CULT NOT INDICATED White Blood Count 11.5 TH/MM3 Red Blood Count 3.91 MIL/MM3 Hemoglobin 9.0 GM/DL Hematocrit 27.1 % Mean Corpuscular Volume 69.3 FL Mean Corpuscular Hemoglobin 23.0 PG Mean Corpuscular Hemoglobin Concent 33.1 % Red Cell Distribution Width 14.7 % Platelet Count 499 TH/MM3 Mean Platelet Volume 8.7 FL Neutrophils (%) (Auto) 70.3 % Lymphocytes (%) (Auto) 19.6 % Monocytes (%) (Auto) 9.4 % Eosinophils (%) (Auto) 0.1 % Basophils (%) (Auto) 0.6 % Neutrophils # (Auto) 8.1 TH/MM3 Lymphocytes # (Auto) 2.3 TH/MM3 Monocytes # (Auto) 1.1 TH/MM3 Eosinophils # (Auto) 0.0 TH/MM3 Basophils # (Auto) 0.1 TH/MM3 CBC Comment DIFF FINAL Differential Comment Blood Urea Nitrogen 12 MG/DL Creatinine 0.92 MG/DL Random Glucose 87 MG/DL Total Protein 8.9 GM/DL Albumin 2.0 GM/DL Calcium Level 8.0 MG/DL Alkaline Phosphatase 348 U/L Aspartate Amino Transf (AST/SGOT) 80 U/L Alanine Aminotransferase (ALT/SGPT) 70 U/L Total Bilirubin 2.6 MG/DL Sodium Level 132 MEQ/L Potassium Level 4.1 MEQ/L Chloride Level 99 MEQ/L Carbon Dioxide Level 23.7 MEQ/L Anion Gap 9 MEQ/L Estimat Glomerular Filtration Rate 121 ML/MIN [facility] Medical Decision Making Medical Screen Exam Complete: Yes Emergency Medical Condition: Yes Medical Record Reviewed: Yes Differential Diagnosis Partially treated pneumonia, UTI, pyelonephritis Narrative Course Patient has mild elevated white blood cell count 11.3. Patient has interval improvement in his symptoms, but still feels somewhat fatigued and now has some pain upon urination. Urinalysis is equivocal to positive despite taking day 9 out of 10 of Levaquin. And about exchange to several sporran/Augmentin as outpatient. Patient encouraged to follow-up and to return probably for worsening. Diagnosis Primary Impression: Pneumonia Qualified Codes: J18.1 - Lobar pneumonia, unspecified organism Additional Impression: UTI (urinary tract infection) Qualified Codes: N39.0 - Urinary tract infection, site not specified Patient Instructions: Community Acquired Pneumonia (ED), General Instructions, Urinary Tract Infection in Men (DC) Additional Instructions: Augmentin 875 mg twice daily for 10 days. Follow-up with her doctor. Return promptly for worsening Scripts Amoxicillin-Clavulanate (Augmentin) 875-125 Mg Tab 1 TAB PO BID for Infection for 10 Days, #20 TAB 0 Refills Prov: Omar Hawkins MD 05/13/17 Disposition: 01 DISCHARGE HOME Condition: Stable Omar Hawkins MD May 13, 2017 21:37
--- NOTE | 2017-05-14 16:06 | HHI.PR ---
Subjective Remarks Follow-up in regards to positive blood cultures and patient was seen in the ED yesterday. He stated that he was seen in the ED because he felt some dysuria and his urine was dark. His UA was negative and the emergency department and blood cultures were obtained again. So far blood cultures are negative for 1 day. Patient stated that he is back home and his mother made an appointment with the health department for him to get a complete STD workup. Otherwise patient stated he has no fever and that his main concern was the dysuria and that his urine looked dark. He stated that he has no abdominal pain and is eating very well. Deny nausea vomiting. One out of 4 blood cultures was positive for Streptococcus viridans. This may be a contaminant. Patient completed his dose of Levaquin as directed. He stated he just picked up the Augmentin that was prescribed in the ED. Patient told that I will follow-up with his blood cultures but if he does not hear from me in 2 days to call the hospital and ask for Dr. Saranya Canela since I will be in the hospital for the next 6 days. Patient stated that he wrote my name down since the last time he called a were confused on which Dr. Canela he was referring to. Objective Vitals Vital Signs Date Time Temp Pulse Resp B/P (MAP) Pulse Ox O2 Delivery O2 Flow Rate FiO2 05/13/17 22:22 05/13/17 19:00 99.7 102 16 121/63 (82) 98 I/O 05/13/17 05/13/17 05/13/17 05/14/17 05/14/17 05/14/17 07:00 15:00 23:00 07:00 15:00 23:00 Intake Total 100 ml Balance 100 ml Intake IV Total 100 ml Result Diagram: 05/13/17201405/13/172014 Saranya Canela MD May 14, 2017 16:06
--- NOTE | 2017-05-17 14:46 | HHI.PR ---
Addendum To [facility] Progress Not Reason for addendum: Additonal documentation (I called patient and updated him on results. I told him most recent blood cultures negative. I also asked him how he was doing. he stated he feels a lot better and is doing well. he had no questions but stated he has appointment with health department on Friday for a full work up for STDs including hepatitis.) Saranya Canela MD May 17, 2017 14:46
== END 2017-05-13 22:23 | disposition home or self-care (01) ==
LOC: NEPC 18:51
DX: J18.1 Lobar pneumonia, unspecified organism (principal); N39.0 Urinary tract infection, site not specified; Z72.0 Tobacco use
CPT/HCPCS: 71045; 80053; 81001; 85025; 87040; 96365; 99284; J0696